=== PATIENT | male | born 1965 | race Caucasian/White ===

== ENCOUNTER → 2018-06-29 09:25 | Outpatient (CLI) | payer BC, SELFPAY ==
[2018-06-29 09:52] LABS: Basophils % 0.5 % (0.1-2.0); Eosinophils # 0.2 K/mm3 (0.0-0.4); Eosinophils % 1.8 % (0.1-12.0); Hematocrit 54.5 % (42.0-52.0); Hemoglobin 17.9 g/dL (14.1-18.0); Lymphocytes # 1.7 K/mm3 (0.7-4.5); Lymphocytes % 19.1 % (10-50); Mean Corpuscular HGB Conc 32.8 g/dL (31.8-35.4); Mean Corpuscular Hemoglobin 30.2 pg (27.0-31.2); Mean Corpuscular Volume 91.8 fl (80-94); Mean Platelet Volume 7.6 fl (7.4-10.4); Monocytes # 0.7 K/mm3 (0.1-1.0); Monocytes % 8.4 % (1.7-9.3); Neutrophils # 6.2 K/mm3 (1.8-7.8); Neutrophils % 70.2 % (37.0-80.0); Platelet Count 270 K/mm3 (142-424); Red Blood Count 5.93 M/mm3 (4.60-6.20); Red Cell Distribution Width 12.5 % (11.5-17.5); White Blood Count 8.8 K/mm3 (4.8-10.8)
[2018-06-29 10:40] LABS: Hemoglobin A1C 10.9 % (0.0-7.0)
[2018-06-29 13:06] LABS: Alanine Aminotransferase 28 U/L (12-78); Albumin Level 4.3 gm/dL (3.4-5.0); Albumin/Globulin Ratio 1.2 (1.1-1.8); Alkaline Phosphatase 66 U/L (46-116); Anion Gap 18.4 mEq/L (5-15); Aspartate Amino Transferase 10 U/L (15-37); Bilirubin,Total 0.4 mg/dL (0.2-1.0); Blood Urea Nitrogen 15 mg/dL (7-18); Calcium 9.3 mg/dL (8.5-10.1); Carbon Dioxide 25 mmol/L (21.0-32.0); Chloride 101 mmol/L (98-107); Chol/HDL Ratio 5.1 (1-3.5); Cholesterol 179 mg/dL (140-200); Creatinine,Serum 0.79 mg/dL (0.70-1.30); Estimated Glomerular Filt Rate 102 ml/min (>60); GFR (African American) 124 ML/MIN (>60); Globulin 3.5 gm/dl (1.3-3.2); Glucose 243 mg/dL (74-106); HDL Cholesterol 35 mg/dL (27-67); LDL Cholesterol 129 mg/dL (0-130); Potassium 4.4 mmoL/L (3.5-5.1); Sodium 140 mmol/L (136-145); T4 (Thyroxine) 10.4 ug/dl (4.7-13.3); Thyroid Stimulating Hormone 0.43 uIU/ml (0.358-3.740); Total Protein,Serum 7.8 gm/dL (6.4-8.2); Triglycerides 76 mg/dL (30-200); VLDL Cholesterol 15 mg/dL (0-40)
[2018-07-01 08:56] LABS: Microalbumin, Urine 87.5 ug/mL (Not Estab.)
== END ==
PROVIDERS: Visit Provider Nurse Practitioner Family
DX: Z00.00 Encounter for general adult medical examination without abnormal findings (principal); E11.9 Type 2 diabetes mellitus without complications; Z79.84 Long term (current) use of oral hypoglycemic drugs
CPT/HCPCS: 36415; 80053; 80061; 82043; 83036; 84436; 84443; 85025

== ENCOUNTER → 2020-07-09 13:57 | Outpatient (CLI) | payer BC, SELFPAY ==
[2020-07-09 14:12] LABS: Alanine Aminotransferase 24 U/L (12-78); Albumin Level 4.9 g/dl (3.5-5.0); Albumin/Globulin Ratio 1.9 (1.1-1.8); Alkaline Phosphatase 71 U/L (38-126); Anion Gap 17.7 mEq/L (5-15); Aspartate Amino Transferase 23 U/L (17-59); Basophils # 0.1 K/mm3 (0-0.2); Basophils % 0.6 % (0.1-2.0); Bilirubin,Total 0.8 mg/dl (0.2-1.3); Blood Urea Nitrogen 19 mg/dl (9-20); Calcium 10.1 mg/dl (8.4-10.2); Carbon Dioxide 22 mmol/L (22.0-30.0); Chloride 103 mmol/L (98-107); Chol/HDL Ratio 4.3 (1-3.5); Cholesterol 160 mg/dl (140-200); Eosinophils # 0.2 K/mm3 (0.0-0.4); Eosinophils % 2.1 % (0.1-12.0); Estimated Glomerular Filt Rate 139 ml/min (>60); GFR (African American) 169 ML/MIN (>60); Globulin 2.6 g/dL (1.3-3.2); Glucose 282 mg/dl (74-100); HDL Cholesterol 37 mg/dl (40-60); Hematocrit 56.2 % (42.0-52.0); Hemoglobin 17.5 g/dL (14.1-18.0); Lymphocytes # 1.7 K/mm3 (0.7-4.5); Lymphocytes % 19.8 % (10-50); Mean Corpuscular HGB Conc 31.1 g/dL (31.8-35.4); Mean Corpuscular Hemoglobin 29.1 pg (27.0-31.2); Mean Corpuscular Volume 93.5 fl (80-94); Monocytes # 0.7 K/mm3 (0.1-1.0); Monocytes % 8.5 % (1.7-9.3); Neutrophils # 5.8 K/mm3 (1.8-7.8); Neutrophils % 68.9 % (37.0-80.0); Platelet Count 239 K/mm3 (142-424); Potassium 4.7 mmoL/L (3.5-5.1); Red Blood Count 6.02 M/mm3 (4.60-6.20); Red Cell Distribution Width 12.6 % (11.5-17.5); Sodium 138 mmol/L (136-145); Total Protein,Serum 7.5 g/dl (6.3-8.2); Triglycerides 98 mg/dl (30-150); VLDL Cholesterol 20 mg/dL (0-40); White Blood Count 8.5 K/mm3 (4.8-10.8)
[2020-07-09 14:23] LABS: Direct LDL Cholesterol 102.87 mg/dL (100-129)
[2020-07-09 14:28] LABS: 25-OH Vitamin D, Total 33.7 ng/mL (30-100); Free T4 (Free Thyroxine) 1.49 ng/dl (0.78-2.19)
[2020-07-09 14:43] LABS: Prostate Specific Ag Screen 0.4 ng/ml (0.0-4.0); Thyroid Stimulating Hormone 0.57 uIU/mL (0.465-4.68)
[2020-07-09 15:06] LABS: Hemoglobin A1C 13.6 % (4.0-6.0)
== END ==
PROVIDERS: Visit Provider Emergency Medicine
DX: Z00.00 Encounter for general adult medical examination without abnormal findings (principal); E55.9 Vitamin D deficiency, unspecified; Z12.5 Encounter for screening for malignant neoplasm of prostate; Z79.899 Other long term (current) drug therapy
CPT/HCPCS: 80053; 80061; 82306; 83036; 84439; 84443; 85025; G0103

== ENCOUNTER → 2020-12-31 19:50 | Outpatient (CLI) | payer BC, SELFPAY ==
[2020-12-31 19:59] LABS: Basophils # 0.1 K/mm3 (0-0.2); Basophils % 1.2 % (0.1-2.0); Eosinophils # 0.3 K/mm3 (0.0-0.4); Eosinophils % 2.7 % (0.1-12.0); Hematocrit 49.6 % (42.0-52.0); Hemoglobin 15.8 g/dL (14.1-18.0); Lymphocytes # 2.5 K/mm3 (0.7-4.5); Lymphocytes % 24.9 % (10-50); Mean Corpuscular HGB Conc 31.9 g/dL (31.8-35.4); Mean Corpuscular Hemoglobin 30.7 pg (27.0-31.2); Mean Corpuscular Volume 96.2 fl (80-94); Mean Platelet Volume 9.9 fl (7.4-10.4); Monocytes # 0.9 K/mm3 (0.1-1.0); Monocytes % 8.5 % (1.7-9.3); Neutrophils # 6.3 K/mm3 (1.8-7.8); Neutrophils % 62.7 % (37.0-80.0); Platelet Count 306 K/mm3 (142-424); Red Blood Count 5.16 M/mm3 (4.60-6.20); Red Cell Distribution Width 13.4 % (11.5-17.5)
[2020-12-31 20:10] LABS: Alanine Aminotransferase 14 U/L (12-78); Albumin Level 4.2 g/dl (3.5-5.0); Albumin/Globulin Ratio 1.6 (1.1-1.8); Alkaline Phosphatase 55 U/L (38-126); Anion Gap 11.4 mEq/L (5-15); Aspartate Amino Transferase 20 U/L (17-59); Bilirubin,Total 0.7 mg/dl (0.2-1.3); Blood Urea Nitrogen 16 mg/dl (9-20); Calcium 9.4 mg/dl (8.4-10.2); Carbon Dioxide 27 mmol/L (22.0-30.0); Chloride 103 mmol/L (98-107); Cholesterol 111 mg/dl (140-200); Estimated Glomerular Filt Rate 171 ml/min (>60); GFR (African American) 207 ML/MIN (>60); Globulin 2.6 g/dL (1.3-3.2); Glucose 150 mg/dl (74-100); HDL Cholesterol 37 mg/dl (40-60); Potassium 4.4 mmoL/L (3.5-5.1); Sodium 137 mmol/L (136-145); Total Protein,Serum 6.8 g/dl (6.3-8.2); Triglycerides 90 mg/dl (30-150); VLDL Cholesterol 18 mg/dL (0-40)
[2020-12-31 20:21] LABS: Direct LDL Cholesterol 57.56 mg/dL (100-129)
[2020-12-31 20:32] LABS: Hemoglobin A1C 10.1 % (4.0-6.0)
[2020-12-31 20:33] LABS: Microalbumin/Creatinine Ratio 62.8
[2020-12-31 20:35] LABS: Creatinine,Urine Random 172 mg/dL (Not Estab.)
[2020-12-31 20:39] LABS: Thyroid Stimulating Hormone 0.82 uIU/mL (0.465-4.68)
== END ==
PROVIDERS: Visit Provider Nurse Practitioner Family
DX: E11.9 Type 2 diabetes mellitus without complications (principal); I10 Essential (primary) hypertension; Z79.899 Other long term (current) drug therapy; Z79.84 Long term (current) use of oral hypoglycemic drugs
CPT/HCPCS: 80053; 80061; 82043; 82570; 83036; 84436; 84443; 85025

== ENCOUNTER 2021-05-04 13:04 | Emergency (ER) | payer OTHER, SELFPAY ==
[2021-05-04] VITALS (10 sets, daily range): BP systolic 138–199; BP diastolic 78–98; PULSE 87–112; RESP 18; TEMP 36.9–37.1; O2SAT 94–99; BMI 29.8
--- NOTE | 2021-05-04 15:08 | CT_ITS ---
FINAL REPORT CLINICAL HISTORY: testicular abscess FINDINGS: Technique: The patient was injected with intravenous contrast. Axial images through the abdomen and pelvis were performed. This study was performed with techniques to keep radiation doses as low as reasonably achievable (ALARA). Individualized dose reduction techniques using automated exposure control or adjustment of mA and/or kV according to the patient's size were employed. Abdomen: The lung bases are clear. There is an 18 mm low-attenuation focus in the lateral right hepatic lobe which has a nonspecific appearance, could possibly be a hemangioma. There is mild nonspecific gallbladder wall thickening. The spleen is unremarkable. The adrenals are normal. The pancreas is unremarkable. Right renal parapelvic cyst is identified. There is mild vascular calcification. The aorta is normal in caliber. There is no free fluid. Pelvis: The appendix is unremarkable. There are enlarged bilateral inguinal nodes which may be reactive. There is edema/inflammation throughout the scrotum. There is a 5.8 x 2.5 cm area of air in the posterior scrotum, may represent an abscess or gas forming infection. No well-defined focal fluid collection is identified. The urinary bladder is unremarkable. There is no free fluid. IMPRESSION: Nonspecific focus in the right hepatic lobe, possibly a hemangioma. If indicated, liver MRI may be helpful. Findings may represent an abscess versus gas forming infection in the scrotum as detailed above. Mild nonspecific gallbladder wall thickening. Reviewed, Interpreted and Dictated by Jose Preciado III, MD Transcribed by Estephanie Seymour Authenticated by Jose Preciado III, MD on 05/04/2021 04:54:20 PM [facility]
[2021-05-04 15:45] LABS: Basophils % 0.3 % (0.1-2.0); Eosinophils # 0.1 K/mm3 (0.0-0.4); Eosinophils % 0.6 % (0.1-12.0); Hematocrit 47.2 % (42.0-52.0); Hemoglobin 15.4 g/dL (14.1-18.0); Lymphocytes # 1.1 K/mm3 (0.7-4.5); Lymphocytes % 8.2 % (10-50); Mean Corpuscular HGB Conc 32.5 g/dL (31.8-35.4); Mean Corpuscular Hemoglobin 30.4 pg (27.0-31.2); Mean Corpuscular Volume 93.6 fl (80-94); Mean Platelet Volume 8.1 fl (7.4-10.4); Monocytes # 0.9 K/mm3 (0.1-1.0); Monocytes % 6.8 % (1.7-9.3); Neutrophils # 10.7 K/mm3 (1.8-7.8); Platelet Count 370 K/mm3 (142-424); Red Blood Count 5.05 M/mm3 (4.60-6.20); Red Cell Distribution Width 12.6 % (11.5-17.5); White Blood Count 12.7 K/mm3 (4.8-10.8)
[2021-05-04 15:50] LABS: INR 0.97 (0.9-1.1)
[2021-05-04 15:57] LABS: Lactic Acid 1.1 mmol/L (0.7-2.1)
[2021-05-04 15:59] LABS: Alanine Aminotransferase 25 U/L (12-78); Albumin Level 4.2 g/dl (3.5-5.0); Albumin/Globulin Ratio 1.2 (1.1-1.8); Alkaline Phosphatase 79 U/L (38-126); Anion Gap 11.9 mEq/L (5-15); Aspartate Amino Transferase 29 U/L (17-59); Bilirubin,Total 0.9 mg/dl (0.2-1.3); Blood Urea Nitrogen 23 mg/dl (9-20); Calcium 8.6 mg/dl (8.4-10.2); Carbon Dioxide 26 mmol/L (22.0-30.0); Chloride 101 mmol/L (98-107); Creatinine Clearance Estimated 164 mL/min (50-200); Estimated Glomerular Filt Rate 116 ml/min (>60); GFR (African American) 141 ML/MIN (>60); Globulin 3.4 g/dL (1.3-3.2); Glucose 264 mg/dl (74-100); Potassium 3.9 mmoL/L (3.5-5.1); Sodium 135 mmol/L (136-145); Total Protein,Serum 7.6 g/dl (6.3-8.2)
[2021-05-04 16:18] LABS: Microscopic, Urine URINE MICROSCOPIC (MICROSCOPIC)
[2021-05-04 16:36] LABS: Appearance,Urine CLEAR (Clear); Bilirubin,Urine Negative (Negative); Blood, Urine Negative (Negative); Color,Urine YELLOW (Yellow); Glucose,Urine (UA) 3+ (Negative); Ketones,Urine TRACE (Negative); Leukocyte Esterase,Urine Negative (Negative); Nitrate,Urine Negative (Negative); Protein,Urine Negative (Negative); Specific Gravity, Urine 1.015 (1.005-1.030)
[2021-05-04 17:06] LABS: Squamous Epithelial Cell,Urine Occasional #/hpf (0-5); WBC,Urine Occasional #/hpf (0-3)
--- NOTE | 2021-05-04 17:15 | PC.NURSE ---
surgeon union steward paged.
--- NOTE | 2021-05-04 17:27 | PC.NURSE ---
Surgery declined to treat pt requesting him to be transferred. Calling [employer] at this time.
--- NOTE | 2021-05-04 17:43 | PC.NURSE ---
BONI LOYOLA speaking with Dr Sanchez at [facility] General Surgery.
--- NOTE | 2021-07-09 21:52 | HMH.EDGENADL ---
ED Disposition Clinical Impression: Abscess Disposition: Xfer Short-Term Hosp Condition on Discharge: Fair Referrals: Antonino Mcnamara MD [Primary Care Provider] - Forms: Transfer Record - ED - Critical Care Critical Care Time: No Attestation: On 05/04/21, the high probability of a clinically significant, sudden or life threatening deterioration of the following system(s) required my full and direct attention, intervention and personal management. The time I documented below is in addition to time spent performing reported procedures but includes the following listed in this critical care notation. Medical Decision Making - Papi Inquiry Pt receiving controlled substance: No Vital Signs: 05/04/21 13:14 05/04/21 14:30 05/04/21 15:00 Temperature 98.5 F Temperature Source Oral Pulse Rate 102 H 106 H Pulse Rate [Left Radial] 112 H Respiratory Rate 18 18 18 Blood Pressure 174/86 H 177/90 H Blood Pressure [Right Arm] 172/89 H Blood Pressure Mean 127 129 Blood Pressure Mean [Right Arm] 116 02 Sat by Pulse Oximetry 99 97 98 Oxygen Delivery Method Room Air Room Air 05/04/21 15:24 05/04/21 15:31 05/04/21 16:00 Temperature Temperature Source Pulse Rate 96 H 101 H 92 H Pulse Rate [Left Radial] Respiratory Rate 18 Blood Pressure 165/88 H 160/92 H 163/88 H Blood Pressure [Right Arm] Blood Pressure Mean 113 Blood Pressure Mean [Right Arm] 02 Sat by Pulse Oximetry 99 99 98 Oxygen Delivery Method 05/04/21 16:31 05/04/21 17:00 05/04/21 17:30 Temperature Temperature Source Pulse Rate 89 95 H 87 Pulse Rate [Left Radial] Respiratory Rate Blood Pressure 171/84 H 138/78 199/98 H Blood Pressure [Right Arm] Blood Pressure Mean Blood Pressure Mean [Right Arm] 02 Sat by Pulse Oximetry 97 94 L 99 Oxygen Delivery Method 05/04/21 19:18 Temperature 98.7 F Temperature Source Oral Pulse Rate 91 H Pulse Rate [Left Radial] Respiratory Rate 18 Blood Pressure 145/87 H Blood Pressure [Right Arm] Blood Pressure Mean Blood Pressure Mean [Right Arm] 02 Sat by Pulse Oximetry Oxygen Delivery Method Room Air - Lab Data Lab Results 05/04/21 15:20: WBC 12.7 H, RBC 5.05, Hgb 15.4, Hct 47.2, MCV 93.6, MCH 30.4, MCHC 32.5, RDW 12.6, Plt Count 370, MPV 8.1, Neut % (Auto) 84.0 H, Lymph % (Auto) 8.2 L, [place] % (Auto) 6.8, Eos % (Auto) 0.6, Baso % (Auto) 0.3, Neut # (Auto) 10.7 H, Lymph # (Auto) 1.1, [place] # (Auto) 0.9, Eos # (Auto) 0.1, Baso # (Auto) 0.0 05/04/21 15:20: PT 11.0, INR 0.97 05/04/21 15:20: Sodium 135 L, Potassium 3.9, Chloride 101, Carbon Dioxide 26, Anion Gap 11.9, BUN 23 H, Creatinine 0.70, Estimated Creat Clear 164, Estimated GFR 116, Est GFR ( Amer) 141, Glucose 264 H, Calcium 8.6, Total Bilirubin 0.9, AST 29, ALT 25, Alkaline Phosphatase 79, Total Protein 7.6, Albumin 4.2, Globulin 3.4 H, Albumin/Globulin Ratio 1.2 05/04/21 15:20: Lactate 1.1 05/04/21 15:20: Blood Type O Positive, Antibody Screen Negative 05/04/21 15:51: Urine Color Yellow, Urine Appearance Clear, Urine pH 6.0, Ur Specific [place] 1.015, Urine Protein Negative, Urine Glucose (UA) 3+, Urine Ketones Trace, Urine Blood Negative, Urine Nitrate Negative, Urine Bilirubin Negative, Urine Urobilinogen 2.0, Ur Leukocyte Esterase Negative, Urine RBC None, Urine WBC Occasional, Ur Squamous Epith Cells Occasional, Urine Bacteria None Result diagrams: 05/04/21 15:20 05/04/21 15:20 Orders (Tests/Meds): ED MEDICATIONS Discontinued Medications Generic Name Dose Route Start Last Admin Trade Name Freq PRN Reason Stop Dose Admin Piperacillin Sod/Tazobactam 100 mls @ 200 mls/hr 05/04/21 17:15 Sod 4.5 gm/ Sodium Chloride IV 05/18/21 17:14 Q8H RONEN Clindamycin Phosphate 300 mg/ 102 mls @ 100 mls/hr 05/04/21 17:49 05/04/21 18:08 Sodium Chloride IV 05/04/21 18:50 100 mls/hr ONCE ONE Administration Vancomycin HCl 2,000 mg/ 500 mls @ 250 mls/hr
== END 2021-05-04 19:22 | disposition short-term general hospital (02) ==
PROVIDERS: Emergency Provider Student in an Organized Health Care Education/Training Program; PCP Emergency Medicine
DX: N45.4 Abscess of epididymis or testis (principal); I10 Essential (primary) hypertension; E03.9 Hypothyroidism, unspecified; E11.9 Type 2 diabetes mellitus without complications; F17.210 Nicotine dependence, cigarettes, uncomplicated
CPT/HCPCS: 74177; 80053; 81001; 83605; 85025; 85610; 86850; 87040; 96365; 99284; C9803; Q9967; U0003; U0005

== ENCOUNTER 2023-11-16 08:44 | Outpatient (CLI) | payer BC, SELFPAY ==
[2023-11-16 18:46] LABS: Basophils # 0.1 K/mm3 (0-0.2); Basophils % 1.2 % (0.1-2.0); Eosinophils # 0.4 K/mm3 (0.0-0.4); Eosinophils % 4.5 % (0.1-12.0); Hematocrit 47.5 % (42.0-52.0); Hemoglobin 14.8 g/dL (14.1-18.0); Lymphocytes % 23.8 % (10-50); Mean Corpuscular HGB Conc 31.1 g/dL (31.8-35.4); Mean Corpuscular Hemoglobin 30.5 pg (27.0-31.2); Mean Corpuscular Volume 98.1 fl (80-94); Mean Platelet Volume 10.8 fl (7.4-10.4); Monocytes # 0.8 K/mm3 (0.1-1.0); Neutrophils # 5.3 K/mm3 (1.8-7.8); Neutrophils % 61.4 % (37.0-80.0); Platelet Count 286 K/mm3 (142-424); Red Blood Count 4.84 M/mm3 (4.60-6.20); Red Cell Distribution Width 13.3 % (11.5-17.5); White Blood Count 8.5 K/mm3 (4.8-10.8)
[2023-11-16 19:15] LABS: Creatinine,Urine Random 57 mg/dL (Not Estab.)
[2023-11-16 19:18] LABS: Alanine Aminotransferase 27 U/L (12-78); Albumin Level 4.2 g/dl (3.5-5.0); Albumin/Globulin Ratio 1.5 (1.1-1.8); Alkaline Phosphatase 49 U/L (38-126); Anion Gap 10.8 mEq/L (5-15); Aspartate Amino Transferase 29 U/L (17-59); Bilirubin,Total 0.7 mg/dl (0.2-1.3); Blood Urea Nitrogen 26 mg/dl (9-20); Calcium 9.5 mg/dl (8.4-10.2); Carbon Dioxide 27 mmol/L (22.0-30.0); Chloride 105 mmol/L (98-107); Chol/HDL Ratio 4.1 (1-3.5); Cholesterol 122 mg/dl (140-200); Estimated Glomerular Filt Rate 99 ml/min (>60); GFR (African American) 119 ML/MIN (>60); Globulin 2.8 g/dL (1.3-3.2); Glucose 126 mg/dl (74-100); HDL Cholesterol 30 mg/dl (40-60); Potassium 4.8 mmoL/L (3.5-5.1); Sodium 138 mmol/L (136-145); Triglycerides 71 mg/dl (30-150); VLDL Cholesterol 14 mg/dL (0-40)
[2023-11-16 19:28] LABS: 25-OH Vitamin D, Total 36.4 ng/mL (30-100)
[2023-11-16 19:50] LABS: Prostate Specific Ag Screen 0.5 ng/ml (0.0-4.0); Thyroid Stimulating Hormone 1.14 uIU/mL (0.465-4.68)
[2023-11-16 20:29] LABS: Hemoglobin A1C 7.6 % (4.0-6.0)
[2023-11-16 20:31] LABS: Microalbumin/Creatinine Ratio 705.6
== END 2023-11-16 23:59 | disposition home or self-care (01) ==
LOC: LAB.DROPOF 11-19 08:45
PROVIDERS: PCP Family Medicine; Visit Provider Family Medicine
DX: Z76.89 Persons encountering health services in other specified circumstances (principal); E11.9 Type 2 diabetes mellitus without complications; Z79.84 Long term (current) use of oral hypoglycemic drugs
CPT/HCPCS: 80050; 80053; 80061; 82043; 82306; 82570; 83036; 84443; 85025; G0103

== ENCOUNTER 2024-03-21 09:00 | Outpatient (CLI) | payer BC, SELFPAY | END 2024-03-21 23:59 | disposition home or self-care (01) | LOC: LAB.DROPOF 03-22 10:08 | PROVIDERS: PCP Family Medicine; Visit Provider Family Medicine | DX: R35.0 Frequency of micturition (principal) | CPT/HCPCS: 87086; 87088; 87186 ==

== ENCOUNTER 2025-02-26 10:13 | Outpatient (CLI) | payer BC, SELFPAY ==
[2025-02-26 20:32] LABS: Hematocrit 45.7 % (42.0-52.0); Hemoglobin 14.7 g/dL (14.1-18.0); Immature Granulocytes % 0.4 %; Mean Corpuscular HGB Conc 32.2 g/dL (31.8-35.4); Mean Corpuscular Hemoglobin 30.4 pg (27.0-31.2); Mean Corpuscular Volume 94.4 fl (80-94); Nucleated Red Blood Cells % 0 %; Platelet Count 283 K/mm3 (142-424); Red Blood Count 4.84 M/mm3 (4.60-6.20); Red Cell Distribution Width-SD 44.7 fL; White Blood Count 11.2 K/mm3 (4.8-10.8)
[2025-02-26 21:02] LABS: Hemoglobin A1C 7.1 % (4.0-6.0)
[2025-02-26 21:04] LABS: Albumin Level 4.5 g/dl (3.5-5.0); Chloride 101 mmol/L (98-107); Potassium 4.4 mmoL/L (3.5-5.1); Sodium 139 mmol/L (136-145)
[2025-02-26 21:07] LABS: Alanine Aminotransferase 24 U/L (12-78); Albumin/Globulin Ratio 1.8 (1.1-1.8); Alkaline Phosphatase 55 U/L (38-126); Anion Gap 16.4 mEq/L (5-15); Aspartate Amino Transferase 22 U/L (17-59); Bilirubin,Total 0.6 mg/dl (0.2-1.3); Blood Urea Nitrogen 21 mg/dl (9-20); Calcium 9.6 mg/dl (8.4-10.2); Carbon Dioxide 26 mmol/L (22.0-30.0); Cholesterol 117 mg/dl (140-200); Creatinine,Serum 0.80 mg/dl (0.66-1.25); Estimated Glomerular Filt Rate 98 ml/min (>60); GFR (African American) 119 ML/MIN (>60); Globulin 2.5 g/dL (1.3-3.2); Glucose 133 mg/dl (74-100); Total Protein,Serum 7.0 g/dl (6.3-8.2); Triglycerides 74 mg/dl (30-150)
[2025-02-26 21:08] LABS: HDL Cholesterol 37 mg/dl (40-60)
== END 2025-02-26 23:59 | disposition home or self-care (01) ==
LOC: LAB.DROPOF 02-27 12:35
PROVIDERS: PCP Family Medicine; Visit Provider Family Medicine
DX: E78.5 Hyperlipidemia, unspecified (principal); I10 Essential (primary) hypertension; E11.9 Type 2 diabetes mellitus without complications
CPT/HCPCS: 80053; 80061; 82043; 82570; 83036; 85025; G0103

== ENCOUNTER 2025-03-13 07:20 | Outpatient (CLI) | payer BC, SELFPAY ==
--- OUTSIDE RECORDS SUMMARY | 2025-03-13 07:23 | XMS_ITS | Clinical Summary ---
Author Organization [facility] Address [address] [place] [address] Care Team Providers Care Mother Baby Rn Name Role Phone Antonino Mcnamara MD Primary Care Provider + [phone] Allergies No known active allergies Medications lisinopril-hyd roCHLOROthiazi de 20-25 MG tablet Take 1 tablet by mouth 1 (one) time each day. Active atorvastatin (Lipitor) 40 MG tablet Take 40 mg by mouth 1 (one) time each day. Active Blood Glucose Monitoring Suppl ([employer] Blood Glucose Meter) w/Device kit 1 each See administration instructions. Use as directed to check blood glucose 4 times a day 1 kit 2 Active nicotine (Nicoderm CQ) 21 MG/24HR patch Place 1 patch on the skin 1 (one) time each day at the same time. 30 patch 2 Active nicotine polacrilex (Commit) 2 MG lozenge Dissolve 1 lozenge (2 mg total) in the mouth if needed for smoking cessation. 100 lozenge 2 Active Insulin Pen Needle (Pen [place]) 32G X 5 MM misc 1 each 1 (one) time each day. 30 each 1 2 Active insulin glargine (Lantus SoloStar, Basaglar) 100 UNIT/ML injection pen Inject 15 Units under the skin every night. 15 mL 1 2 Active Additional Information Patient not taking.Reported on 07/28/2022 glipiZIDE XL (Glucotrol XL) 10 MG 24 hr tablet TAKE 1 TABLET(10 MG) BY MOUTH 1 TIME EACH DAY. 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 Overview (05/04/2021): Added automatically from request for surgery [id number] Type 2 diabetes mellitus Hypertension Family History Medical History Relation Name Comments Diabetes type I Mother Nery Relation Name Status Comments Mother Nery Social History Tobacco Use Types Packs/Day Years Used Date Smoking Tobacco: Every Day Cigarettes 1 15 Smokeless Tobacco: Never Alcohol Use Standard Drinks/Week Comments Never 0 (1 standard drink = 0.6 oz pur e alcohol) PHQ-2 Answer Date Recorded Patient Health Questionnaire-2 Score 0 06/13/2021 Sex and Gender Information Value Date Recorded Sex Assigned at Not on file Legal Sex Male 9:51 PM EDT Gender Identity Not on file Sexual Orientation Not on file Last Filed Vital Signs Vital Sign Reading Time Taken Comments Blood Pressure 161/81 06/06/2023 9:03 AM EDT Pulse 77 06/06/2023 9:03 AM EDT Temperature 36.6 C (97.9 F) 05/10/2021 10:30 AM EST Respiratory Rate 13 05/10/2021 10:30 AM EST Oxygen Saturation 97% 05/10/2021 10:30 AM EST Inhaled Oxygen Concentration - - Weight 106 kg (233 lb 11 oz) 06/06/2023 9:03 AM EDT Height 182.9 cm (6') 06/06/2023 9:03 AM EDT Body Mass Index 31.69 06/06/2023 9:03 AM EDT Plan of Treatment Health Maintenance Due Date Last Done Comments [facility]-HIV Screening 1965 [facility]-Infant/Child/Adol SDOH Screenings 1965 Diabetes: Dental Exam 08/26/1973 [facility]- SDOH Screenings 08/26/1981 [facility]-Adult SDOH Screenings 08/26/1981 [facility]-Pneumococcal Vaccine: 50+ Years (1 of 2 - PCV) 08/26/1982 CT Colonography 08/26/2008 Colonoscopy 08/26/2008 FIT-DNA 08/26/2008 FIT 08/26/2008 FOBT 08/26/2008 Sigmoidoscopy 08/26/2008 [facility]-Colorectal Cancer Screening 08/26/2008 [facility]-RSV Vaccine: 60+ Years or (1 - Risk 50-74 years 1-dose series) 08/26/2013 [facility]-Zoster Vaccines (1 of 2) 08/26/2013 [facility]-Depression Screening 06/13/2022 06/13/2021, 05/18 [facility]-Diabetes: Hemoglobin A1C 12/04/2023, 12/04/2022, 04/28/2022, Additional history exists [id number] Vaccine (2024- season) 2024 10/24/2021, 02/15/2021, 06/16/2020, Additional history exists [facility]-Influenza Vaccine (#1) 2024 12/10/2020, [facility]-DTaP,Tdap,and Td Vaccines (2 - Td or Tdap) 12/22/2029 12/23/2019 [facility]-Hepatitis A Vaccines Aged Out 12/10/2020, 08/2019 No longer eligible based on patient's age to complete this topic [facility]-Hepatitis C Screening Completed 05/04/2021 [facility]-Obesity Intervention Completed 024, 12/04/2022, 12/04/2022, Additional history exists HPV Vaccines (No Doses Required) Completed [facility]-HIB Vaccines Aged Out No longer e ligible based on patient's age to complete this topic [facility]-IPV Vaccines Aged Out No longer e ligible based on patient's age to complete this topic [facility]-Rotavirus Vaccines Aged Out No lo nger eligible based on patient's age to complete this topic Procedures Procedure Name Priority Date/Time Associated Diagnosis Comments POCT GLYCOSYLATED HEMOGLOBIN (HGB A1C) Routine 06/06/2023 9:19 AM EDT Type 2 diabetes mellitus with hyperglycemia, without long-term current use of insulin (CMS/HCC) HEPATITIS C ANTIBODY - ED W/REFLEX TO HCV QUANT PCR STAT 05/04/2021 8:38 PM EST from Last 3 Months or Most Recently Relevant to Health Maintenance Results * POCT glycosylated hemoglobin (Hb A1C) docked device (06/06/2023 9:19 AM EDT) POCT Hemoglobin A1C 7.3 <5.7% Non-Diabet ic [facility] Kit Lot Number [id number] [facility] Kit Expiration Date 04/18/25 [facility] Blood Venous blood specimen / Unknown 06/06/2023 9:19 AM EDT aKrla Tom APRN POINT OF CARE TEST ENTER/BAHMAN T ORDERABLES Final Result Performing Organization Address City/[facility]/ZIP Co de Phone Number [facility] [address] [place] [address] * Dawson Hepatitis C Antibody (05/04/2021 8:38 PM EST) Pathologist [facility] Hepatitis C Antibody Negative Negative 05/04/2021 10:17 PM EST [facility] Blood Venous blood specimen / Unknown Venipuncture / Unknown 05/04/2021 8:38 PM EST 05/04/2021 8:46 PM EST Hung Conteh MD LAB BLOOD ORDERABLES Final Resul t Performing Organization Address City/[facility]/ZIP Co de Phone Number [facility] [address] [place] [address] from Last 3 Months or Most Recently Relevant to Health Maintenance Insurance [facility] Advance Directives * Full Code (Latest Code Status on File) Date Activated Date Inactivated Comments 05/04/2021 10:17 PM 05/10/2021 6:53 PM Question Answer Comments Patient has decision-making capacity? Yes Care Teams Mother Baby Rn Relationship Specialty Start Date End Date Antonino Mcnamara MD [address] [place] [address] PCP - General 05/04/21
--- OUTSIDE RECORDS SUMMARY | 2025-03-13 07:23 | XMS_ITS ---
Author Organization Unknown ENCOUNTERS Encounter Performer Location Date Diagnosis Diagnosis Status [facility] [place] [id number] [facility] [address] [place] [address] [id number] [facility] *Note: Encounters from your own facility or health system may be excluded. Allergies, Adverse Reactions, Alerts Allergen Type Severity Identification Date Medications Name Date Quantity Days Supplied [facility] [place] Number
--- NOTE | 2025-03-13 07:30 | CT_ITS ---
FINAL REPORT CLINICAL HISTORY: lung cancer screening SMOKER 1.5 PPD X 40 YEARS FINDINGS: CT CHEST LOW DOSE SCREENING HISTORY: Screening exam for lung cancer. DOSE: CTDI vol: 2.90 mGy, DLP: 108.38 mGy*cm TECHNIQUE: Axial CT without IV contrast administration using low dose protocol. This study was performed with techniques to keep radiation doses as low as reasonably achievable, (ALARA). Individualized dose reduction techniques using automated exposure control or adjustment of mA and/or kV according to the patient's size were employed. No acute lung disease is present. There is a triangular nodule along the minor fissure measuring 6 mm on image 42, series 4 most compatible with perifissural lymph node. There is a 3 mm subpleural nodule in the left lower lobe on image 48, series 4 that is likely calcified. No pulmonary lesions are seen suspicious for neoplasm. No pleural or pericardial effusion is seen. No adenopathy or mass lesion is present. IMPRESSION: No suspicious pulmonary nodules. LUNG RADS CATEGORY 1 RECOMMENDATION: 12 month LDCT follow up Reviewed, Interpreted and Dictated by Perri Schwartz MD Transcribed by Estephanie Seymour Authenticated and [facility]
== END 2025-03-13 23:59 ==
LOC: RAD 07:21
PROVIDERS: PCP Family Medicine; Visit Provider Family Medicine
DX: Z12.2 Encounter for screening for malignant neoplasm of respiratory organs (principal); F17.210 Nicotine dependence, cigarettes, uncomplicated; R91.8 Other nonspecific abnormal finding of lung field
CPT/HCPCS: 71271